=== PATIENT | female | born 1985 | race Caucasian/White ===

== ENCOUNTER → 2017-12-02 | Day surgery (SDC) | payer BC ==
--- NOTE | 2017-12-03 11:10 | PATH ---
Surgical Pathology Report Patient Name: VIKKI CONSTANTINO [facility]. Rec. #: [id number] /Age/Gender: 1985 (Age: 32) / F Account: [id number] Location: [facility] Taken: 12/02/2017 Received: 12/02/2017 Reported: 12/03/2017 Physicians: Wero Francois M.D. Specimen(s) Received LEFT BREAST CORE BIOPSY 3:00 O'CLOCK Clinical History Nonpalpable lesion Ultrasound findings: Probably benign Final Diagnosis LEFT BREAST, 3:00, ULTRASOUND GUIDED NEEDLE CORE BIOPSY: NODULAR ADENOSIS. NO CARCINOMA OR ATYPIA IDENTIFIED. Electronically Signed Myke Torres M.D. Gross Description Received in formalin, labeled "left 3:00," are 3 larry-yellow, cylindrical portions of fibroadipose tissue ranging from 0.6-1.0 cm. in length and averaging 0.1 cm. in diameter. The specimen is submitted in toto in one cassette. Time to formalin fixation: Not indicated Total formalin fixation time: Approximately 8-24 hours. [facility]/12/02/2017 [facility]/12/02/2017
== END | disposition home or self-care (01) ==
LOC: JRADUS-SUR 08:42
PROVIDERS: ATTEND Obstetrics & Gynecology
PROC: 0HBU3ZX Excision of Left Breast, Percutaneous Approach, Diagnostic (ICD-10-PCS; principal; 2017-12-02)
DX: N60.22 Fibroadenosis of left breast (principal)
CPT/HCPCS: 19083; 87899; 88305-TC; A4648